=== PATIENT | male | born 1990 | race Caucasian/White ===

== ENCOUNTER 2017-01-07 20:18 | Emergency (ER) | payer OTHER ==
[~2017-01-07] VITALS: Ht 175.3 cm; Wt 68.1 kg
[~2017-01-07 20:18] MED LIST: ANAPROX DS550 M1 PO; NOHOMEMEDS
[2017-01-07] MEDS ORDERED: ZITHROMAX Z-PA250 MG PO (21:14)
[2017-01-07] MEDS ORDERED: ROBITUSSIN AC,T10 ML PO (21:14)
[2017-01-07 21:28] VITALS: BP 137/83
== END 2017-01-07 21:29 | disposition home or self-care (01) ==
LOC: EME 20:18 → EXP 20:18
DX: J40 Bronchitis, not specified as acute or chronic (principal); G89.29 Other chronic pain; G43.909 Migraine, unspecified, not intractable, without status migrainosus; F17.220 Nicotine dependence, chewing tobacco, uncomplicated
CPT/HCPCS: 99281; 99282; J8540